=== PATIENT | female | born 1975 | race Two or more races ===

== ENCOUNTER 2016-12-13 05:59 | Day surgery (SDC) | payer BC ==
[~2016-12-13] VITALS: Ht 167.6 cm; Wt 94.3 kg
[2016-12-13] MEDS ORDERED: ASPI1TAB30 PO (06:37)
[2016-12-13] MEDS ORDERED: MORPHINE SULFATE 2 MG/ML DISP.SYRIN. IV PRN (07:00)
[2016-12-13] MEDS ORDERED: HYDROmorphone 2 MG/ML VIAL IV PRN (07:00)
[2016-12-13] MEDS ORDERED: LIDOCAINE 1% 1 ML SYRINGE. ID PRN (07:00)
[2016-12-13] MEDS ORDERED: IV RINGERS,LACTATED 1000ML 1,000 ML IV SCH (07:00)
[2016-12-13] MEDS ORDERED: FENTANYL PF 100 MCG/2 ML VIAL. IV PRN ×2 (07:00)
[2016-12-13] MEDS ORDERED: ONDANSETRON PF 4 MG/2 ML VIAL. IV PRN (07:00)
[2016-12-13] MEDS ORDERED: PROCHLORPERAZINE 10 MG/2 ML VIAL. IV PRN (07:00)
[2016-12-13 07:15] LABS: NEG OBC UR NEG; POS OBC UR POS
[2016-12-13] MEDS ORDERED: PROPOFOL 20 ML IV ONE (07:23)
[2016-12-13] MEDS ORDERED: DEXAMETHASONE SOD PHOS 20 MG/5 ML VIAL. ONE (07:23)
[2016-12-13] MEDS ORDERED: FENTANYL PF 100 MCG/2 ML VIAL. ONE (07:23)
[2016-12-13] MEDS ORDERED: LIDOCAINE 2% 100 MG/5 ML SYRINGE. ONE (07:23)
[2016-12-13] MEDS ORDERED: ONDANSETRON PF 4 MG/2 ML VIAL. ONE (07:23)
[2016-12-13] MEDS ORDERED: MIDAZOLAM HCL/PF 2 MG/2 ML VIAL. ONE (07:23)
[2016-12-13] MEDS: LIDOCAINE 1%/EPI 1:100,000 20 ML VIAL. ONE ×2 (07:27→07:53)
[2016-12-13] MEDS: FERRIC SUBSULFATE 8 ML SOL.W.APPL TP ONE ×2 (07:28→07:53)
[2016-12-13] MEDS ORDERED: GLYCOPYRROLATE 1 MG/5 ML VIAL. ONE (07:57)
--- NOTE | 2016-12-13 08:08 | PDOC ---
BRIEF OPERATIVE NOTE Pre-Op Diagnosis Cervical Dysplasia Post-Op Diagnosis SAme Procedure Performed Cervical Cone Biopsy Surgeon Dr. Dominguez Anesthesia Type: General Blood Loss 5 ml Specimens Obtained cervical cone biopsy Findings cervical dysplasia Complications none Additional Remarks Pt. ERNESTO Yeung Jr, MD Dec 13, 2016 08:08
--- NOTE | 2016-12-13 08:08 | DISCH ---
DISCHARGE INSTRUCTIONS Condition on Discharge Condition on Discharge: Stable Activity After Discharge Activity Instructions for Disc: Activity as tolerated Lifting Instructions after Dis: No heavy lifting Driving Instructions after Dis: Do not drive today Diet after Discharge Diet after Discharge: Regular Contacting the DRIrvin after DC Call your doctor for: Concerns you may have Follow-Up Follow up with: Dr. Dominguez in 1 week. ERNESTO DOMINGUEZ Jr, MD Dec 13, 2016 08:08
--- NOTE | 2016-12-13 08:24 | OP ---
DATE OF SURGERY: PREOPERATIVE DIAGNOSIS: Cervical dysplasia. POSTOPERATIVE DIAGNOSIS: Cervical dysplasia. PROCEDURE: Cervical cone biopsy. SURGEON: Ernetso Dominguez M.D. ANESTHESIA: GETA. ESTIMATED BLOOD LOSS: 5 mL. COMPLICATIONS: None. FINDINGS: Cervical dysplasia. SUMMARY: A 41-year-old 3, para 3 with moderate cervical dysplasia by colposcopic biopsy requiring cold knife cone biopsy. The patient was counseled on risks, benefits and expectations and voiced clear understanding to proceed. DESCRIPTION OF PROCEDURE: The patient was taken to surgery suite and placed in dorsal lithotomy position where she was prepped with Betadine and draped in sterile fashion. After adequate anesthesia, weighted speculum and curved Mulugeta placed vaginally, anterior lip of cervix grasped with a single tooth tenaculum. 2-0 Vicryl suture was placed at the 3 o'clock and 9 o'clock positions for stabilization of the cervix. 1% lidocaine with epinephrine was injected in a circumferential manner. Cone biopsy was performed with a 45-degree angle scapula removing the cervical tissue in a cone-shaped formation. The remaining cervical tissue was cauterized with Bovie cautery with ball tip. Monsel solution was also utilized for good hemostasis. The single tooth tenaculum and weighted speculum were removed. The patient tolerated the procedure well and was taken to recovery room in stable condition. Sponge and needle counts correct x 3. ERNESTO DOMINGUEZ MD DR: BOBBY/bob JOB#: [id number] / [id number]
[2016-12-13] MEDS ORDERED: OXYC-323 PO (08:28)
[2016-12-13 08:53] VITALS: BP 125/61
--- NOTE | 2016-12-17 16:44 | PATHOLOGY ---
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 - Endocervical, exocervical and deep margins negative for HARINDER III. - Focal low grade dysplasia present at exocervical margin. - Focal active chronic cervicitis with atypical squamous metaplasia. COMMENT: There is no evidence of invasive carcinoma. (JPM:csd; d/t: 12/17/2016) REPORT ELECTRONICALLY SIGNED BY: Robin Lopez M.D. DATE/TIME: 12/17/2016 16:43 * * * * * * * * GROSS PATHOLOGY: Received in formalin labeled "Marj Mack, cervical cone biopsy, suture 12:00," is a previously opened LEEP specimen measuring 2.7 x 2.2 x 1.5 cm in greatest dimensions. The specimen is oriented with a suture marking the 12:00 position. The 1.8 cm cervical os is surrounded by light saavedra, granular ectocervical mucosa. The endocervical margin is inked blue and the ectocervical margin is inked black. The specimen is divided into four quadrants in a clockwise fashion, sectioned, and entirely submitted as follows: A1-A2 12 to 3:00 margin A3 3 to 6:00 margin A4 6 to 9:00 margin A5-A6 9 to 12:00 margin. (CAA; 12/14/2016) INITIAL CPT CODE(S): A; 14675 Professional services performed by [facility] at [address] [address] Technical services performed by [facility] at [address] [place] [address] [address] [address]. SPECIMEN(S) RECEIVED: A.Cervical cone biopsy CLINICAL HISTORY: Moderate cervical dysplasia PATIENT: MARJ MACK /AGE: 8 1975 (Age: 41) PATIENT #: [id number] ALT CASE #: SPECIMEN COLLECTION DATE: 12/13/2016 SPECIMEN RECEIVED DATE: 12/13/2016 [facility] - [address] [place] [address] - PHONE: [phone] * * * END OF REPORT * * *
== END 2016-12-13 09:30 | disposition home or self-care (01) ==
LOC: SURG 05:59 → MERGE 09:15 → SURG 09:30
PROVIDERS: ATTEND Obstetrics & Gynecology
DX: N87.9 Dysplasia of cervix uteri, unspecified (principal); E66.9 Obesity, unspecified; Z98.51 Tubal ligation status
CPT/HCPCS: 57520; 81025; J0690; J1100; J2250; J2405; J2704; J3010; J3490; J7120

== ENCOUNTER 2016-12-22 17:24 | Emergency (ER) | payer BC ==
[~2016-12-22] VITALS: Ht 167.6 cm; Wt 94.3 kg
[~2016-12-22 17:24] MED LIST: ASPI1TAB30 PO; OXYC-323 PO
[2016-12-22 18:05] LABS: BASO % 0 % (0-3); EOS % 1 % (0-3); HEMATOCRIT 36.8 % (36.0-47.0); HEMOGLOBIN 12.6 g/dL (12.0-15.5); LYMPH # 2.6 x10^3/uL (1.0-4.8); LYMPH % 23 % (24-48); MEAN CORPUSCULAR HEMOGLOBIN 30 pg (25-35); MEAN CORPUSCULAR HGB CONC 34 g/dL (31-37); MEAN CORPUSCULAR VOLUME 89 fL (79-100); MONO % 7 % (0-9); NEUT % 69 % (31-73); PLATELET COUNT 264 x10^3/uL (140-400); RED BLOOD COUNT 4.15 x10^6/uL (3.50-5.40); RED CELL DISTRIBUTION WIDTH 14.2 % (11.5-14.5); WHITE BLOOD COUNT 11.4 x10^3/uL (4.0-11.0)
--- NOTE | 2016-12-22 18:11 | ED.ADGEN ---
Past Medical History Past Medical History: Migraines Past Surgical History: Other Additional Past Surgical Histo: VAGINAL SURG R/T CANCER CELLS Alcohol Use: None Drug Use: None Adult General Chief Complaint Chief Complaint: VAGINAL PROBLEM HPI HPI Patient is a 41 year old female status post colposcopy with biopsy [address] Dominguez presents with vaginal bleeding with passage of large dark clots starting 2 hours ago while at work. Patient scheduled states she has had light vaginal bleeding past 2 days consistent with menstrual period. Patient's last menstrual period was one month ago. Denies history of menorrhagia or dysfunctional uterine bleeding. Patient said previous hysterectomy. Denies dizziness lightheadedness, chest pain shortness of breath. No other acute symptoms or complaints. Review of Systems Review of Systems Review symptoms as per history of present illness. All other review symptoms are negative. Allergies Allergies Allergies Coded Allergies Type Severity Reaction Last Updated Verified No Known Drug Allergies 12/13/16 No Physical Exam Physical Exam Constitutional: Well developed, well nourished, no acute distress, non-toxic appearance. Abdomen: Bowel sounds normal, soft, no tenderness, no masses, no pulsatile masses. Skin: Warm, dry, no erythema, no rash. : External genitalia, normal, dark red blood and clots in vaginal vault, dark red blood through os with fresh blood on biopsy site. Extremities: No tenderness. Neurologic: Alert and oriented X 3, normal motor function, normal sensory function, no focal deficits noted. Psychologic: Affect normal, judgement normal, mood normal. Current Patient Data Vital Signs Vital Signs Date Time Temp Pulse Resp B/P (MAP) Pulse Ox O2 Delivery O2 Flow Rate FiO2 12/22/16 17:33 98.3 97 18 141/65 (90) 99 Room Air 98.3 EKG EKG [] Radiology/Procedures Radiology/Procedures [] Impressions: Vaginal bleeding the setting of colpsscopy. Bleeding cleared with removal of clots with minimal flow. Course & Med Decision Making Course & Med Decision Making Pertinent Labs and Imaging studies reviewed. (See chart for details) [ Will check CBC, provide work note with close follow-up with AIRPORT MANAGER. Return precautions reviewed.] Dragon Disclaimer Dragon Disclaimer This electronic medical record was generated, in whole or in part, using a voice recognition dictation system. AMBER LACEY DO December 22, 2016 18:11
[2016-12-22 18:27] VITALS: BP 115/56
== END 2016-12-22 18:26 | disposition home or self-care (01) ==
LOC: ER 17:24
DX: N93.8 Other specified abnormal uterine and vaginal bleeding (principal); G43.909 Migraine, unspecified, not intractable, without status migrainosus
CPT/HCPCS: 36415; 85027; 99283

== ENCOUNTER → 2017-06-20 | Outpatient (CLI) | payer BC ==
[~2017-06-20] MED LIST changes: -ASPI1TAB30 PO; +ASPI1TAB31 PO; +DOCU-109 PO; +IBUP-1060 PO
[2017-06-20 15:29] LABS: BASO % 0 % (0-3); EOS % 2 % (0-3); HEMATOCRIT 39.6 % (36.0-47.0); HEMOGLOBIN 13.4 g/dL (12.0-15.5); LYMPH # 2.6 x10^3/uL (1.0-4.8); LYMPH % 32 % (24-48); MEAN CORPUSCULAR HEMOGLOBIN 30 pg (25-35); MEAN CORPUSCULAR HGB CONC 34 g/dL (31-37); MEAN CORPUSCULAR VOLUME 89 fL (79-100); MONO % 8 % (0-9); NEUT % 58 % (31-73); PLATELET COUNT 278 x10^3/uL (140-400); RED BLOOD COUNT 4.47 x10^6/uL (3.50-5.40); RED CELL DISTRIBUTION WIDTH 14.2 % (11.5-14.5); WHITE BLOOD COUNT 7.9 x10^3/uL (4.0-11.0)
== END | disposition home or self-care (01) ==
LOC: SURGPAT 14:22
PROVIDERS: ATTEND Obstetrics & Gynecology
DX: Z01.818 Encounter for other preprocedural examination (principal); Z90.722 Acquired absence of ovaries, bilateral
CPT/HCPCS: 36415; 85025

== ENCOUNTER 2017-06-27 09:57 | Observation (INO) | payer BC ==
[~2017-06-27] VITALS: Ht 167.6 cm; Wt 96.2 kg
[2017-06-27] VITALS (8 sets, daily range): BP systolic 106–114; BP diastolic 62–74
[~2017-06-27 09:57] MED LIST changes: -DOCU-109 PO; +HYDROmorphone 2 MG/ML VIAL IV PRN; -IBUP-1060 PO; +IV RINGERS,LACTATED 1000ML 1,000 ML IV SCH; +LIDOCAINE 1% PF 2 ML VIAL. ID PRN; +ONDANSETRON PF 4 MG/2 ML VIAL. IV PRN; +PROCHLORPERAZINE 10 MG/2 ML VIAL. IV PRN; +fentaNYL PF VIAL 100 MCG/2 ML VIAL IV PRN
[2017-06-27 10:37] LABS: NEG OBC UR NEG; POS OBC UR POS
[2017-06-27] MEDS ORDERED: MIDAZOLAM HCL/PF 2 MG/2 ML VIAL. ONE (10:45)
[2017-06-27] MEDS ORDERED: fentaNYL PF VIAL 100 MCG/2 ML VIAL ONE (10:45)
[2017-06-27] MEDS ORDERED: DEXAMETHASONE SOD PHOS 20 MG/5 ML VIAL. ONE (10:45)
[2017-06-27] MEDS ORDERED: PROPOFOL 20 ML IV ONE (10:45)
[2017-06-27] MEDS ORDERED: ONDANSETRON PF 4 MG/2 ML VIAL. ONE (10:45)
[2017-06-27] MEDS ORDERED: LIDOCAINE 2% PF Vial for OR 5 ML VIAL. ONE (10:45)
[2017-06-27] MEDS ORDERED: ROCURONIUM 50 MG/5 ML VIAL. ONE (10:46)
[2017-06-27] MEDS ORDERED: ESTROGENS, CONJ VAGINAL CREAM 30GM TUBE. ONE (10:50)
[2017-06-27] MEDS ORDERED: LIDOCAINE 1%/EPI 1:100,000 20 ML VIAL. ONE (10:50)
[2017-06-27] MEDS ORDERED: GLYCOPYRROLATE 1 MG/5 ML VIAL. ONE (11:34)
[2017-06-27] MEDS ORDERED: NEOSTIGMINE 10 MG/10 ML VIAL. ONE (11:34)
[2017-06-27] MEDS ORDERED: KETOROLAC 30 MG/ML INJ FOR OR. INJ ONE (11:34)
[2017-06-27] MEDS ORDERED: PHENYLEPHRINE in 0.9% NACL PF 1 MG/10 ML DISP.SYRIN. IV ONE (11:36)
[2017-06-27] MEDS ORDERED: SEVOFLURANE 61 TO 120 MINUTES. IH ONE (11:36)
--- NOTE | 2017-06-27 12:19 | PDOC ---
BRIEF OPERATIVE NOTE Date: Jun 27, 2017 Pre-Op Diagnosis 1. Cervical Dysplasia 2. Fm H/o Breast Cancer Post-Op Diagnosis SAme Procedure Performed TVH & BSO Surgeon Dr. Dominguez Anesthesia Type: General Blood Loss 200 ml Specimens Obtained uterus, cervix, ame. fallopian tubes and ovaries Findings enlarged uterus, nml fallopian tubes and ovaries ame. Complications none Operative Note see dictation ERNESTO DOMINGUEZ Jr, MD Jun 27, 2017 12:19
[2017-06-27] MEDS ORDERED: DEXTROSE 50% 25 GM / 50ML DISP.SYRIN. IV PRN (12:30)
[2017-06-27] MEDS ORDERED: ONDANSETRON PF 4 MG/2 ML VIAL. IV PRN (12:30)
[2017-06-27] MEDS ORDERED: PROCHLORPERAZINE 10 MG/2 ML VIAL. IV PRN (12:30)
[2017-06-27] MEDS ORDERED: ZOLPIDEM 5 MG TABLET. PO PRN (12:30)
[2017-06-27] MEDS ORDERED: 0.9 % SODIUM CHLORIDE 10 ML DISP.SYRIN. IV PRN (12:30)
[2017-06-27] MEDS ORDERED: diphenhydrAMINE HCL 25 MG CAPSULE PO PRN (12:30)
[2017-06-27] MEDS ORDERED: SIMETHICONE 80 MG TAB.CHEW PO PRN (12:30)
[2017-06-27] MEDS ORDERED: KETOROLAC 30 MG/ML INJ. IV PRN (12:30)
[2017-06-27] MEDS ORDERED: CALCIUM CARBONATE 500 MG TAB.CHEW PO PRN (12:30)
[2017-06-27] MEDS: fentaNYL PF VIAL 100 MCG/2 ML VIAL IV PRN ×4 (12:37→13:25)
[2017-06-27] MEDS: MORPHINE SULFATE 2 MG/ML DISP.SYRIN. IV PRN ×2 (13:06→13:21)
--- NOTE | 2017-06-27 13:47 | OP ---
DATE OF SURGERY: PREOPERATIVE DIAGNOSES: 1. Cervical dysplasia. 2. Family history of breast cancer. POSTOPERATIVE DIAGNOSES: 1. Cervical dysplasia. 2. Family history of breast cancer. PROCEDURE: TVH BSO. SURGEON: Ernesto Dominguez MD ANESTHESIA: GETA. ESTIMATED BLOOD LOSS: ____ mL. COMPLICATIONS: None. FINDINGS: Enlarged uterus, normal fallopian tubes and ovaries bilaterally. SUMMARY: A 42-year-old female with family history of breast cancer as well as recurrent, [id number] cervical dysplasia, requiring hysterectomy. The patient was counseled on the risks, benefits and expectations of TVH BSO and voiced a clear understanding to proceed. DESCRIPTION OF PROCEDURE: The patient was taken to the Surgery Suite and placed in dorsal lithotomy position. She was prepped with ChloraPrep and draped in a sterile fashion. After adequate anesthesia, weighted speculum and curved Mulugeta placed vaginally. The anterior and posterior lips of the cervix were grasped with Jean-Pierre clamps. 1% lidocaine with epinephrine was injected circumferentially in the cervix. Bovie cautery was then utilized to circumscribe the cervix. The vaginal mucosa was dissected away from the lower uterine segment using a moist Ray-Nova. The parametrial tissue was clamped bilaterally with curved Johann clamps, cut and suture ligated with 2-0 Vicryl suture. Posterior cul-de-sac was then entered sharply with curved Matt scissors. The long weighted speculum was then placed. Uterosacral ligaments and cardinal ligaments were clamped bilaterally, cut and suture ligated with 2-0 Vicryl suture. The anterior cul-de-sac was entered sharply with Metzenbaum scissors. The uterosacral ligaments were clamped bilaterally, cut and suture ligated with 2-0 Vicryl sutures. The uterus was then retroverted and a quadrant method was utilized to help remove the fundal portion of the uterus. The remainder portion of the uterus was then removed. The right fallopian tube and ovary was identified and grasped with Babcocks. The right infundibulopelvic ligament was isolated and clamped with curved Johann clamps, cut and suture ligated. Same process took place with the left adnexa. A modified Bravo's culdoplasty was performed incorporating the uterosacral ligaments bilaterally. The remainder of the vaginal cuff was reapproximated using 2-0 Vicryl suture in a doohvt-uk-myntk manner. Moist vaginal packing was placed. The patient tolerated the procedure well and was taken to Recovery Room in stable condition. Sponge and needle counts correct x 3. ERNESTO DOMINGUEZ MD DR: BOBBY/bob JOB#: [id number] / [id number]
[2017-06-27] MEDS: diphenhydrAMINE 50 MG/ML VIAL IV PRN ×2 (14:25→20:45)
[2017-06-27] MEDS: GABAPENTIN 300 MG CAPSULE. PO SCH (16:46)
[2017-06-27] MEDS: oxyCODONE/APAP 5/325 1 TAB TABLET PO PRN ×2 (16:46→22:00)
[2017-06-28] MEDS: oxyCODONE/APAP 5/325 1 TAB TABLET PO PRN ×2 (02:14→07:04)
[2017-06-28 02:30] VITALS: BP 104/61
[2017-06-28 05:42] LABS: BASO % 0 % (0-3); EOS % 0 % (0-3); HEMATOCRIT 33.9 % (36.0-47.0); HEMOGLOBIN 11.7 g/dL (12.0-15.5); LYMPH # 1.3 x10^3/uL (1.0-4.8); LYMPH % 7 % (24-48); MEAN CORPUSCULAR HEMOGLOBIN 31 pg (25-35); MEAN CORPUSCULAR HGB CONC 35 g/dL (31-37); MEAN CORPUSCULAR VOLUME 89 fL (79-100); MONO % 4 % (0-9); NEUT % 89 % (31-73); PLATELET COUNT 253 x10^3/uL (140-400); RED BLOOD COUNT 3.82 x10^6/uL (3.50-5.40); RED CELL DISTRIBUTION WIDTH 14.2 % (11.5-14.5); WHITE BLOOD COUNT 20.9 x10^3/uL (4.0-11.0)
[2017-06-28 05:59] VITALS: BP 110/68
[2017-06-28] MEDS: GABAPENTIN 300 MG CAPSULE. PO SCH (07:03)
--- NOTE | 2017-06-28 08:52 | PDOC ---
SURGICAL PROGRESS NOTE Subjective Pt. feeling well. Pain controlled. Tolerating regular diet, ambulating and voiding. Vital Signs Vital Signs Date Time Temp Pulse Resp B/P (MAP) Pulse Ox O2 Delivery O2 Flow Rate FiO2 06/28/17 07:04 Room Air 06/28/17 05:59 98.3 76 14 110/68 (82) 98 98.3 06/27/17 16:46 2.0 PATIENT HAS A VELAZQUEZ: No General: Alert, Oriented X3, Cooperative HEENT: Atraumatic Lungs: Clear to auscultation Heart: Regular rate Abdomen: Normal bowel sounds, Soft, No tenderness Extremities: No edema Psych/Mental Status: Mental status NL Labs Laboratory Tests Test 06/27/17 10:00 06/28/17 05:15 Urine Test Negative (NEG) White Blood Count 20.9 x10^3/uL (4.0-11.0) Red Blood Count 3.82 x10^6/uL (3.50-5.40) Hemoglobin 11.7 g/dL (12.0-15.5) Hematocrit 33.9 % (36.0-47.0) Mean Corpuscular Volume 89 fL (79-100) Mean Corpuscular Hemoglobin 31 pg (25-35) Mean Corpuscular Hemoglobin Concent 35 g/dL (31-37) Red Cell Distribution Width 14.2 % (11.5-14.5) Platelet Count 253 x10^3/uL (140-400) Neutrophils (%) (Auto) 89 % (31-73) Lymphocytes (%) (Auto) 7 % (24-48) Monocytes (%) (Auto) 4 % (0-9) Eosinophils (%) (Auto) 0 % (0-3) Basophils (%) (Auto) 0 % (0-3) Neutrophils # (Auto) 18.6 x10^3uL (1.8-7.7) Lymphocytes # (Auto) 1.3 x10^3/uL (1.0-4.8) Monocytes # (Auto) 0.9 x10^3/uL (0.0-1.1) Eosinophils # (Auto) 0.0 x10^3/uL (0.0-0.7) Basophils # (Auto) 0.0 x10^3/uL (0.0-0.2) Laboratory Tests Test 06/27/17 10:00 06/28/17 05:15 Urine Test Negative (NEG) White Blood Count 20.9 x10^3/uL (4.0-11.0) Red Blood Count 3.82 x10^6/uL (3.50-5.40) Hemoglobin 11.7 g/dL (12.0-15.5) Hematocrit 33.9 % (36.0-47.0) Mean Corpuscular Volume 89 fL (79-100) Mean Corpuscular Hemoglobin 31 pg (25-35) Mean Corpuscular Hemoglobin Concent 35 g/dL (31-37) Red Cell Distribution Width 14.2 % (11.5-14.5) Platelet Count 253 x10^3/uL (140-400) Neutrophils (%) (Auto) 89 % (31-73) Lymphocytes (%) (Auto) 7 % (24-48) Monocytes (%) (Auto) 4 % (0-9) Eosinophils (%) (Auto) 0 % (0-3) Basophils (%) (Auto) 0 % (0-3) Neutrophils # (Auto) 18.6 x10^3uL (1.8-7.7) Lymphocytes # (Auto) 1.3 x10^3/uL (1.0-4.8) Monocytes # (Auto) 0.9 x10^3/uL (0.0-1.1) Eosinophils # (Auto) 0.0 x10^3/uL (0.0-0.7) Basophils # (Auto) 0.0 x10^3/uL (0.0-0.2) Assessment/Plan A: POD#1 s/p TVH & BSO P: D/c home. Problems: ERNESTO CUEVAS Jr, MD Jun 28, 2017 08:52
--- NOTE | 2017-06-28 08:53 | DISCH ---
DISCHARGE INSTRUCTIONS Condition on Discharge Condition on Discharge: Stable Activity After Discharge Activity Instructions for Disc: Activity as tolerated Lifting Instructions after Dis: No heavy lifting Driving Instructions after Dis: Do not drive today Diet after Discharge Diet after Discharge: Regular Contacting the DRIrvin after DC Call your doctor for: Concerns you may have Follow-Up Follow up with: Dr. Dominguez in 2 weeks. ERNESTO DOMINGUEZ Jr, MD Jun 28, 2017 08:53
[2017-06-28] MEDS ORDERED: OXYC-323 PO (08:54)
[2017-06-28] MEDS ORDERED: IBUP-1060 PO (08:54)
[2017-06-28] MEDS ORDERED: DOCU-109 PO (08:54)
[2017-06-28 11:52] VITALS: BP 110/53
[2017-06-28 12:21] LABS: PLT ESTIMATE ADEQUATE (ADEQUATE); TOXIC GRANULATION SLIGHT
--- NOTE | 2017-07-02 15:17 | PATHOLOGY ---
PATHOLOGY REPORT * * * * * * * * FINAL DIAGNOSIS: Segments of uterine corpus with attached cervix and detached bilateral fallopian tubes and ovaries, total vaginal hysterectomy with bilateral salpingo-oophorectomy: - Mild dysplasia (HARINDER I) of cervix, focal. See comment. - Exocervical margin negative for dysplasia. - Previous biopsy site changes of uterine cervix showing fibrosis,hemosiderin laden macrophages, and focal foreign body giant cell reaction. - Chronic cervicitis with focal squamous metaplasia. - Endometriosis of cervix, focal. - Nabothian cysts, cervix. - Secretory endometrium. - Adenomyosis, uterine corpus, subbasal, focal. - Bilateral fallopian tubes showing no significant pathologic abnormalities. - Cystic follicles and hemorrhagic corpus luteal cyst of ovaries. COMMENT: The entire uterine cervix is submitted for histologic evaluation. There is a focal area consistent with mild dysplasia (HARINDER I). There is no residual severe dysplasia/carcinoma in situ (HARINDER III). The case is also examined by Dr. Jessee Child, who has a speciality interest in [employer] pathology. She concurs with the diagnoses. (JPM:; 07/02/2017) REPORT ELECTRONICALLY SIGNED BY: Robin Lopez M.D. DATE/TIME: 07/02/2017 15:16 * * * * * * * * GROSS PATHOLOGY: The specimen is received in formalin labeled "Jose Mack, uterus, cervix, bilateral fallopian tubes, bilateral ovaries". Received is a 119 g uterus (received in multiple pieces) measuring 9.5 x 7.6 x 5.9 cm in aggregate dimensions with attached cervix and detached adnexa, weighing 9 and 14 g. The uterine serosa is light saavedra and smooth to slightly disrupted in appearance. The 0.5 cm cervical os is surrounded by pale saavedra, smooth to slightly wrinkled ectocervical mucosa. The attached cervix is oriented using the peritoneal reflection and the entire paracervical margin is inked black. The fundal aspect of the specimen cannot be oriented. The lower uterine segment is opened laterally to reveal a pale saavedra endocervical canal measuring 3.6 cm in length. The endometrial cavity is triangular measuring 3.6 cm in length by 2.1 cm in width. The endometrium is pink-saavedra, glistening in appearance and measures 0.1 cm in thickness. Serial sectioning reveals a saavedra-pink, trabeculated myometrium measuring up to 3.1 cm in thickness with no grossly distinct nodules or lesions. The 9 g adnexa consists of a fimbriated fallopian tube measuring 3.2 cm in length by up to 0.5 cm in diameter attached to a 3.1 x 2.5 x 1.7 cm ovary. Sectioning through the fallopian tube reveals a patent lumen and the fallopian tube appears grossly unremarkable. Sectioning through the ovary reveals multiple cystic structures ranging in size from 0.3 to 0.6 cm filled with clear fluid. The remainder the ovary displays pale saavedra, normal ovarian stroma. The 14 adnexa consists of a non-fimbriated fallopian tube measuring 2.2 cm in length by up to 0.5 cm in diameter attached to a 3.1 x 3.0 x 2.2 cm ovary. Sectioning through the fallopian tube reveals a pinpoint lumen and the fallopian tube has a metallic ligation clamp present. Sectioning through the ovary reveals multiple cystic structures ranging in size from 0.2 to 0.5 cm filled with clear fluid. The remaining cut surfaces display pale saavedra, normal ovarian stroma. The entire cervix and additional sales representative facility services sections are submitted as follows: A1-A4 12 to 3:00 cervix A5-A7 3 to 6:00 cervix A8-A11 6 to 9:00 cervix A12-A15 9 to 12:00 cervix A16 endomyometrium A17 opposite endomyometrium A18-A19 sales representative facility services sections of 9 g adnexa A20-A21 sales representative facility services sections of 14 g adnexa. (CAA; 06/28/2017) INITIAL CPT CODE(S): A; 39595 Professional services performed by [facility] at [address] [address] Technical services performed by [facility] at [address] [place] [address], [address], [place] [address]. SPECIMEN(S) RECEIVED: A.Uterus, cervix, bilateral fallopian tubes, bilateral ovaries CLINICAL HISTORY: Moderate cervical dysplasia, family history of breast cancer PATIENT: JOSE MACK /AGE: 8 1975 (Age: 42) PATIENT #: [id number] ALT CASE #: SPECIMEN COLLECTION DATE: 06/27/2017 SPECIMEN RECEIVED DATE: 06/27/2017 [facility] - [address] [place] [id number] - PHONE: [phone] * * * END OF REPORT * * *
== END 2017-06-28 12:58 | disposition home or self-care (01) ==
LOC: SURG 09:57 → 3 NORTH 13:41
PROVIDERS: ADMIT Obstetrics & Gynecology; ATTEND Obstetrics & Gynecology
DX: N87.9 Dysplasia of cervix uteri, unspecified (principal); Z80.3 Family history of malignant neoplasm of breast; Z85.3 Personal history of malignant neoplasm of breast
CPT/HCPCS: 36415; 58262; 81025; 85007; 85025; 86850; 86900; 86901; 96374; 96375; 96376; G0378; G0379; J0690; J1100; J1170; J1200; J1885; J2250; J2270; J2370; J2405; J2704; J2710; J3010; J3490; J7120; 88309; J0780; J2001

== ENCOUNTER 2017-07-08 11:05 | Observation (INO) | payer BC ==
[~2017-07-08] VITALS: Ht 172.7 cm; Wt 94.1 kg
[~2017-07-08 11:05] MED LIST changes: +DOCU-109 PO; -HYDROmorphone 2 MG/ML VIAL IV PRN; +IBUP-1060 PO; -IV RINGERS,LACTATED 1000ML 1,000 ML IV SCH; -LIDOCAINE 1% PF 2 ML VIAL. ID PRN; -ONDANSETRON PF 4 MG/2 ML VIAL. IV PRN; -PROCHLORPERAZINE 10 MG/2 ML VIAL. IV PRN; -fentaNYL PF VIAL 100 MCG/2 ML VIAL IV PRN
[2017-07-08 11:57] LABS: BASO % 0 % (0-3); EOS % 1 % (0-3); HEMATOCRIT 32.3 % (36.0-47.0); HEMOGLOBIN 11.3 g/dL (12.0-15.5); LYMPH # 3.5 x10^3/uL (1.0-4.8); LYMPH % 37 % (24-48); MEAN CORPUSCULAR HEMOGLOBIN 31 pg (25-35); MEAN CORPUSCULAR HGB CONC 35 g/dL (31-37); MEAN CORPUSCULAR VOLUME 89 fL (79-100); MONO % 6 % (0-9); NEUT % 56 % (31-73); PLATELET COUNT 322 x10^3/uL (140-400); RED BLOOD COUNT 3.62 x10^6/uL (3.50-5.40); RED CELL DISTRIBUTION WIDTH 14.1 % (11.5-14.5); WHITE BLOOD COUNT 9.6 x10^3/uL (4.0-11.0)
[2017-07-08 12:06] LABS: CREATININE 1.1 mg/dL (0.6-1.0); GFR 54.2; POTASSIUM 3.7 mmol/L (3.5-5.1)
--- NOTE | 2017-07-08 12:11 | RAD ---
Indication: Shortness of air. Time of exam 12 00 hours FINDINGS: The heart size is normal. The lungs are clear. No pleural effusion or pneumothorax is identified. The pulmonary vascularity is normal. IMPRESSION: No acute abnormality detected.
[2017-07-08 12:12] LABS: ALBUMIN/GLOBULIN RATIO 0.8 (1.0-1.7); TOTAL BILIRUBIN 0.3 mg/dL (0.2-1.0); TOTAL PROTEIN 6.6 g/dL (6.4-8.2)
[2017-07-08] MEDS ORDERED: IV NORMAL SALINE 1000ML BAG 1,000 ML IV ONE ×2 (12:15→14:15)
--- NOTE | 2017-07-08 12:33 | PHYS DOC ---
Past Medical History Past Medical History: No Pertinent History, Migraines Past Surgical History: Hysterectomy, Other Additional Past Surgical Histo: VAGINAL SURG R/T CANCER CELLS Alcohol Use: None Drug Use: None Adult General Chief Complaint Chief Complaint: SYNCOPE HPI HPI Patient is a 42 year old female who presents with 3 episodes of syncope, lower abdominal pain, weakness. Patient symptoms developed today, 11 days ago she had a complete hysterectomy transvaginally. She been feeling okay with some minor pain in her abdomen which increased today. She states it feels very full. She had 2 syncopal episodes when she got up to try to go to the bathroom. She had sudden urgency of urination as well as defecation. She denies any fevers, no nausea or vomiting. She is also experiencing shortness of breath and chest pain on the right side of her chest, worse with deep inspiration, sharp in nature. This also started today. Denies any history of blood clots in her legs or lungs. Surgeon was Dr. Dominguez, no other primary care physician. She denies any known cardiac history. She was brought in by EMS, reportedly her blood pressure was initially in the 70s, improved by the time she arrived to our ER. Review of Systems Review of Systems Constitutional: Denies fever or chills [] Eyes: Denies change in visual acuity, redness, or eye pain [] HENT: Denies nasal congestion or sore throat [] Respiratory: Denies cough or shortness of breath [] Cardiovascular: No additional information not addressed in HPI [] GI: Per history of present illness : Her history of present illness Musculoskeletal: Denies back pain or joint pain [] Integument: Denies rash or skin lesions [] Neurologic: Denies headache, focal weakness or sensory changes [] Current Medications Current Medications Current Medications Medications (Trade) Dose Ordered Sig/Fausto Start Time Stop Time Status Last Admin Dose Admin Ceftriaxone Sodium 50 ml @ 100 mls/hr 1X ONCE 07/08/17 13:15 07/08/17 13:44 DC 07/08/17 13:42 100 MLS/HR Info (Do NOT chart on this entry -- for MONITORING) 1 each PRN DAILY PRN 07/08/17 12:45 07/10/17 12:44 Iohexol (Omnipaque 300 Mg/ml) 75 ml 1X ONCE 07/08/17 12:45 07/08/17 12:46 DC 07/08/17 13:15 60 ML Sodium Chloride 1,000 ml @ 1,000 mls/hr 1X ONCE 07/08/17 12:15 07/08/17 13:14 DC 07/08/17 12:18 1,000 MLS/HR Allergies Allergies Allergies Coded Allergies Type Severity Reaction Last Updated Verified No Known Drug Allergies 06/27/17 No Physical Exam Physical Exam Constitutional: Well developed, well nourished HENT: Normocephalic, atraumatic, bilateral external ears normal, oropharynx moist Eyes: PERRLA, EOMI, conjunctiva normal, no discharge. Neck: Normal range of motion, supple, no stridor. Cardiovascular:Heart rate regular with regular rhythm Lungs & Thorax: Bilateral breath sounds clear to auscultation, no wheeze, crackles or rhonchi appreciated Abdomen: Soft, nondistended, diffusely tender in the lower abdomen without guarding or peritoneal signs Skin: Warm, dry Back: No tenderness Extremities: No tenderness, no cyanosis, no edema. Unable to palpate DP pulses , able to palpate right femoral, unable to palpate left femoral, Dopplers performed Neurologic: Alert and oriented X 3, normal motor function, normal sensory function, no focal deficits noted. [] Current Patient Data Vital Signs Vital Signs Date Time Temp Pulse Resp B/P (MAP) Pulse Ox O2 Delivery O2 Flow Rate FiO2 07/08/17 13:38 72 20 120/55 (76) 100 Room Air 07/08/17 13:08 2.0 07/08/17 11:05 97.9 97.9 Lab Values Laboratory Tests Test 07/08/17 11:11 07/08/17 12:40 White Blood Count 9.6 x10^3/uL (4.0-11.0) Red Blood Count 3.62 x10^6/uL (3.50-5.40) Hemoglobin 11.3 g/dL (12.0-15.5) L Hematocrit 32.3 % (36.0-47.0) L Mean Corpuscular Volume 89 fL (79-100) Mean Corpuscular Hemoglobin 31 pg (25-35) Mean Corpuscular Hemoglobin Concent 35 g/dL (31-37) Red Cell Distribution Width 14.1 % (11.5-14.5) Platelet Count 322 x10^3/uL (140-400) Neutrophils (%) (Auto) 56 % (31-73) Lymphocytes (%) (Auto) 37 % (24-48) Monocytes (%) (Auto) 6 % (0-9) Eosinophils (%) (Auto) 1 % (0-3) Basophils (%) (Auto) 0 % (0-3) Neutrophils # (Auto) 5.3 x10^3uL (1.8-7.7) Lymphocytes # (Auto) 3.5 x10^3/uL (1.0-4.8) Monocytes # (Auto) 0.6 x10^3/uL (0.0-1.1) Eosinophils # (Auto) 0.1 x10^3/uL (0.0-0.7) Basophils # (Auto) 0.0 x10^3/uL (0.0-0.2) D-Dimer (Lashanda) 0.94 ug/mlFEU (0.00-0.50) H Sodium Level 139 mmol/L (136-145) Potassium Level 3.7 mmol/L (3.5-5.1) Chloride Level 105 mmol/L (98-107) Carbon Dioxide Level 20 mmol/L (21-32) L Anion Gap 14 (6-14) Blood Urea Nitrogen 12 mg/dL (7-20) Creatinine 1.1 mg/dL (0.6-1.0) H Estimated GFR (Cockcroft-Gault) 54.2 BUN/Creatinine Ratio 11 (6-20) Glucose Level 186 mg/dL (70-99) H Calcium Level 9.0 mg/dL (8.5-10.1) Total Bilirubin 0.3 mg/dL (0.2-1.0) Aspartate Amino Transferase (AST) 15 U/L (15-37) Alanine Aminotransferase (ALT) 22 U/L (14-59) Alkaline Phosphatase 81 U/L (46-116) Troponin I Quantitative < 0.017 ng/mL (0.000-0.055) Total Protein 6.6 g/dL (6.4-8.2) Albumin 3.0 g/dL (3.4-5.0) L Albumin/Globulin Ratio 0.8 (1.0-1.7) L Urine Color Yellow Urine Clarity Cloudy Urine pH 6.5 Urine Specific [place] 1.025 Urine Protein 100 mg/dL (NEG-TRACE) Urine Glucose (UA) 100 mg/dL (NEG) Urine Ketones (Stick) Trace mg/dL (NEG) Urine Blood Small (NEG) Urine Nitrite Negative (NEG) Urine Bilirubin Negative (NEG) Urine Urobilinogen Dipstick 0.2 mg/dL (0.2 mg/dL) Urine Leukocyte Esterase Small (NEG) Urine RBC 6-10 /HPF (0-2) Urine WBC 20-40 /HPF (0-4) Urine Squamous Epithelial Cells Many /LPF Urine Bacteria Moderate /HPF (0-FEW) Urine Mucus Marked /LPF Laboratory Tests 07/08/17 11:11 Laboratory Tests 07/08/17 11:11 EKG EKG 88 bpm, sinus, normal axis, QTC of 480, no ST elevation or depression, nonischemic T waves, interpreted by me Senior Publications Specialist shows 74 bpm, sinus, no arrhythmia appreciated interpreted by me [] Continuous pulse ox shows 100% on room air with good waveform, interpreted by me Radiology/Procedures Radiology/Procedures CT abd/pelvis: Impression: Status post hysterectomy. There is a moderate amount of high density free fluid noted in the pelvis suggestive of hemoperitoneum. Lower density free fluid in the upper abdomen is also noted. No well-formed fluid collection or abscess is identified. There is no bowel obstruction or free air. CTA chest: Impression: Suboptimal exam, described above. No gross abnormality is detected. Bilateral arterial doppler: Impression: No evidence of high-grade stenosis or occlusion. Course & Med Decision Making Course & Med Decision Making Pertinent Labs and Imaging studies reviewed. (See chart for details) Was given 1 L of IV fluids, lab work, urinalysis ordered. Patient is at risk for PE, Main lower abdominal pain, on palpable pulses. A CT angiography of the chest, abdomen and pelvis ordered with runoffs. Patient declined pain medication at this time. CTA study nondiagnostic, CT abd without acute findings, no arterial clots on dopplers of legs. Pt had an episode where she became diaphoretic and appeared to be less responsive, she had diffuse rigidity of her extremities but not pulsating and remained conscious, no seizure-like activity, no loss of urine, no postictal period. Blood pressure had dropped and it was shortly after pt received medication of morphine. Pt likely had syncope 2/2 to hypotension, cause of hypotension not clear. Spoke with Dr. Dominguez who accepted pt for admission. Initially planned to place pt on L&D floor, but due to pt's changing blood pressure intermittently, pt moved to PCU. Jomar Disclaimer Jomar Disclaimer This electronic medical record was generated, in whole or in part, using a voice recognition dictation system. Departure Departure Impression: Primary Impression: Syncope Additional Impression: UTI (urinary tract infection) Disposition: ADMITTED INPATIENT Admitting Physician: Other Condition: GUARDED Referrals: NO PCP (PCP) Scripts Sulfamethoxazole/Trimethoprim (BACTRIM DS TABLET) 1 Each Tablet 1 TAB PO BID, #6 TAB 0 Refills Prov: ERNESTO DOMINGUEZ Jr, MD 07/09/17 Problem Qualifiers JABARI BLANCO MD Jul 08, 2017 12:33
[2017-07-08] MEDS ORDERED: CONTRAST GIVEN MC PRN (12:45)
[2017-07-08] MEDS ORDERED: IOHEXOL 300 MG/ML 100ML VIAL. IV ONE (12:45)
--- NOTE | 2017-07-08 12:45 | EKG ---
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
[2017-07-08 12:47] LABS: BILIRUBIN,URINE NEGATIVE (NEG); GLUCOSE,URINE 100 mg/dL (NEG); NITRITE,URINE NEGATIVE (NEG); PH,URINE 6.5; PROTEIN,URINE 100 mg/dL (NEG-TRACE); UROBILINOGEN,URINE 0.2 mg/dL (0.2 mg/dL)
[2017-07-08 12:53] LABS: SQUAMOUS EPITHELIAL CELL,UR MANY /LPF
[2017-07-08 12:54] LABS: BACTERIA,URINE MODERATE /HPF (0-FEW); WBC,URINE 20-40 /HPF (0-4)
--- NOTE | 2017-07-08 13:47 | RAD ---
Indication: Postop recent hysterectomy with right-sided chest pain and abdominal pain. Axial imaging through the chest was performed after the administration of intravenous contrast and utilizing the CT angiography protocol. Multiplanar, 3-D and MIP reformations were also performed. The study is significantly compromised. There is very poor opacification of the pulmonary arterial system. There is suboptimal opacification of the thoracic aorta as well. No aortic dissection or aneurysm is seen. Evaluation for pulmonary emboli cannot be performed on this exam. No pericardial or pleural fluid is detected. No axillary, hilar or mediastinal lymphadenopathy is detected. No pulmonary infiltrates, nodules or masses are seen. Impression: Suboptimal exam, described above. No gross abnormality is detected. PQRS Compliance Statement: One or more of the following individualized dose reduction techniques were utilized for this examination: 1. Automated exposure control 2. Adjustment of the mA and/or kV according to patient size 3. Use of iterative reconstruction technique
--- NOTE | 2017-07-08 13:51 | RAD ---
Indication: Status post hysterectomy on 06/27/2017. The patient complains of abdominal pain and right-sided chest pain. Axial imaging through the abdomen and pelvis was performed after the administration of intravenous contrast. No prior studies are available for comparison. The liver and gallbladder are unremarkable. The pancreas and spleen are unremarkable. No adrenal mass is identified. The kidneys are unremarkable. There is some perihepatic and perisplenic free fluid. Small amount of fluid in the gutters is also seen. In the pelvis there appears to be some higher density free fluid, perhaps a hemoperitoneum. No acute arterial extravasation is seen. The bladder is decompressed. Uterus appears surgically absent. There is no free air. No bowel obstruction is identified. The aorta is nonaneurysmal. No well-formed fluid collection or abscess is seen at this time. Impression: Status post hysterectomy. There is a moderate amount of high density free fluid noted in the pelvis suggestive of hemoperitoneum. Lower density free fluid in the upper abdomen is also noted. No well-formed fluid collection or abscess is identified. There is no bowel obstruction or free air.
[2017-07-08] MEDS ORDERED: ACETAMINOPHEN 325 MG TABLET. PO PRN (14:15)
--- NOTE | 2017-07-08 14:47 | RAD ---
Indication: Leg pain and nonpalpable pulses. Grayscale, color-flow and duplex Doppler evaluation of bilateral lower extremity arterial systems was performed. There are triphasic waveforms in the right lower extremity from the right common femoral artery to the popliteal artery with biphasic waveforms below the knee. Triphasic waveforms on the left are noted in the common femoral and superficial femoral arteries with primarily biphasic waveforms from the popliteal distally. No significant velocity elevation is identified. There is no high-grade stenosis. No occlusion is detected. Impression: No evidence of high-grade stenosis or occlusion.
[2017-07-08] MEDS ORDERED: ASPIRIN 325 MG TABLET PO ONE (15:15)
[2017-07-08] MEDS ORDERED: MORPHINE SULFATE 4 MG/ML DISP.SYRIN. IV ONE (15:15)
[2017-07-08 16:00] VITALS: BP 105/55
[2017-07-08 19:35] VITALS: BP 113/48
[2017-07-08] MEDS ORDERED: IBUPROFEN 800 MG TABLET. PO PRN (20:15)
[2017-07-08] MEDS ORDERED: ONDANSETRON PF 4 MG/2 ML VIAL. IV PRN (20:15)
[2017-07-08] MEDS ORDERED: traMADol 50 MG TABLET PO PRN (20:15)
[2017-07-08] MEDS: IV RINGERS,LACTATED 1000ML 1,000 ML IV SCH (20:46)
[2017-07-08 23:10] VITALS: BP 115/58
[2017-07-09 03:00] VITALS: BP 109/37
[2017-07-09 04:18] LABS: BASO % 0 % (0-3); EOS % 1 % (0-3); HEMATOCRIT 25.4 % (36.0-47.0); HEMOGLOBIN 8.6 g/dL (12.0-15.5); LYMPH # 2.8 x10^3/uL (1.0-4.8); LYMPH % 22 % (24-48); MEAN CORPUSCULAR HEMOGLOBIN 30 pg (25-35); MEAN CORPUSCULAR HGB CONC 34 g/dL (31-37); MEAN CORPUSCULAR VOLUME 90 fL (79-100); MONO % 6 % (0-9); NEUT % 71 % (31-73); PLATELET COUNT 246 x10^3/uL (140-400); RED BLOOD COUNT 2.83 x10^6/uL (3.50-5.40); RED CELL DISTRIBUTION WIDTH 14.5 % (11.5-14.5); WHITE BLOOD COUNT 12.6 x10^3/uL (4.0-11.0)
[2017-07-09 04:53] LABS: ALBUMIN 2.7 g/dL (3.4-5.0); ALBUMIN/GLOBULIN RATIO 0.9 (1.0-1.7); CALCIUM 8.4 mg/dL (8.5-10.1); CREATININE 0.7 mg/dL (0.6-1.0); GFR 91.3; POTASSIUM 4.2 mmol/L (3.5-5.1); TOTAL BILIRUBIN 0.3 mg/dL (0.2-1.0); TOTAL PROTEIN 5.8 g/dL (6.4-8.2)
[2017-07-09] MEDS: IV RINGERS,LACTATED 1000ML 1,000 ML IV SCH (06:36)
[2017-07-09 07:00] VITALS: BP 106/51
--- NOTE | 2017-07-09 08:42 | PDOC1 ---
History and Physical Date of Admission Date of Admission DATE: 07/09/17 TIME: 08:37 Identification/Chief Complaint Chief Complaint syncope x 3 at home Problems: Source Source: Chart review, Patient History of Present Illness History of Present Illness 42 y/o 1 wk s/p TVH & BSO presented by ambulance to ED with c/o syncope x 3 that started yesterday morning. She felt great initially after the surgery but had syncope yesterday after drinking coffee in am. No fevers, chills, N/V, CP, SOB or headache or vaginal bleeding. Past Medical History Cardiovascular: No pertinent hx Pulmonary: No pertinent hx GI: No pertinent hx Heme/Onc: No pertinent hx Hepatobiliary: No pertinent hx Psych: No pertinent hx Past Surgical History Past Surgical History: Other (TVH & BSO) Current Problem List Problem List Problems Medical Problems: (1) Syncope Status: Acute Problems: Current Medications Current Medications Current Medications Sodium Chloride 1,000 ml @ 1,000 mls/hr 1X ONCE IV Last administered on 07/08 12:18; Start 07/08/17 at 12:15; Stop 07/08/17 at 13:14; Status DC Iohexol (Omnipaque 300 Mg/ml) 75 ml 1X ONCE IV Last administered on 13:15; Start 07/08/17 at 12:45; Stop 07/08/17 at 12:46; Status DC Info (Do NOT chart on this entry -- for MONITORING) 1 each PRN DAILY PRN MC SEE COMMENTS; Start 07/08/17 at 12:45; Stop 07/10/17 at 12:44 Ceftriaxone Sodium 50 ml @ 100 mls/hr 1X ONCE IV Last administered on 13:42; Start 07/08/17 at 13:15; Stop 07/08/17 at 13:44; Status DC Acetaminophen (Tylenol) 650 mg PRN Q4HRS PRN PO FEVER; Start 07/08/17 at 14:15 ; Stop 07/09/17 at 14:14 Sodium Chloride 1,000 ml @ 100 mls/hr 1X ONCE IV Last administered on 14:15; Start 07/08/17 at 14:15; Stop 07/09/17 at 00:14; Status DC Morphine Sulfate 4 mg 1X ONCE IV Last administered on 07/08/17 15:14; Start 07/08/17 at 15:15; Stop 07/08/17 at 15:16; Status DC Aspirin (Machelle Aspirin) 325 mg 1X ONCE PO Last administered on 07/08/17 15: 14; Start 07/08/17 at 15:15; Stop 07/08/17 at 15:16; Status DC Tramadol HCl (Ultram) 50 mg PRN Q6HRS PRN PO PAIN Last administered on 23:24; Start 07/08/17 at 20:15 Ibuprofen (Motrin) 800 mg PRN Q6HRS PRN PO INFLAMMATION Last administered on 20:46; Start 07/08/17 at 20:15 Ondansetron HCl (Zofran) 4 mg PRN Q6HRS PRN IV NAUSEA/VOMITING; Start at 20:15 Ringer's Solution 1,000 ml @ 150 mls/hr Q6H40M IV Last administered on 06:36; Start 07/08/17 at 20:30 Ceftriaxone Sodium 1 gm/ Dextrose 50 ml @ 100 mls/hr Q24H IV ; Start 07/08/17 at 20:30; Status UNV Ceftriaxone Sodium (Rocephin) 1 gm Q24H IVP ; Start 07/09/17 at 14:00 Active Scripts Active Percocet 5-325 Mg Tablet (Oxycodone/Acetaminophen) 1 Each Tablet 1 Tab PO PRN Q6HRS PRN Ibuprofen 800 Mg Tablet 800 Mg PO PRN Q6HRS PRN Colace (Docusate Sodium) 100 Mg Capsule 100 Mg PO BID Reported Percocet 5-325 Mg Tablet (Oxycodone/Acetaminophen) 1 Each Tablet 1-2 Tab PO Q4HRS Excedrin Migraine Caplet (Aspirin/Acetaminophen/Caffeine) 1 Each Tablet 1 Each PO BID PRN Allergies Allergies: Coded Allergies: No Known Drug Allergies (Unverified , 06/27/17) ROS General: YES: Appetite, No: Chills, Night Sweats, Fatigue, Malaise, Other PSYCHOLOGICAL ROS: YES: Anxiety, No: Behavioral Disorder, Concentration difficultie, Decreased libido, Depression, Disorientation, Hallucinations, Hostility, Irritablity, Memory difficulties, Mood Swings, Obsessive thoughts, Physical abuse, Sexual abuse, Sleep disturbances, Suicidal ideation, Other Eyes: No Blurry vision, No Decreased vision, No Double vision, No Dry eyes, No Excessive tearing, No Eye Pain, No Itchy Eyes, No Loss of vision, No Photophobia , No Scotomata, No Uses contacts, No Uses glasses, No Other HEENT: No: Heacaches, Visual Changes, Hearing change, Nasal congestion, Nasal discharge, Oral lesions, Sinus pain, Sore Throat, Epistaxis, Sneezing, Snoring, Tinnitus, Vertigo, Vocal changes, Other ALLERGY AND IMMUNOLOGY: No: Hives, Insect Bite Sensitivity, Itchy/Watery Eyes, Nasal Congestion, Post Nasal Drip, Seasonal Allergies, Other Hematological and Lymphatic: No: Bleeding Problems, Blood Clots, Blood Transfusions, Brusing, Night Sweats, Pallor, Swollen Lymph Nodes, Other ENDOCRINE: No: Breast Changes, Galactorrhea, Hair Pattern Changes, Hot Flashes , Malaise/lethargy, Mood Swings, Palpitations, Polydipsia/polyuria, Skin Changes , Temperature Intolerance, Unexpected Weight Changes, Other Breast: No New/Changing Breast Lumps, No Nipple changes, No Nipple discharge, No Other Respiratory: No: Cough, Hemoptysis, Orthopnea, Pleuritic Pain, Shortness of breath, SOB with excertion, Sputum Changes, Stridor, Tachypnea, Wheezing, Other Cardiovascular: No Chest Pain, No Palpitations, No Orthopnea, No Paroxysmal Noc. Dyspnea, No Edema, No Lt Headedness, No Other Gastrointestinal: No Nausea, No Vomiting, No Abdominal Pain, No Diarrhea, No Constipation, No Melena, No Hematochezia, No Other Genitourinary: No Dysuria, No Frequency, No Incontinence, No Hematuria, No Retention, No Discharge, No Urgency, No Pain, No Flank Pain, No Other, No , No , No , No , No , No , No Musculoskeletal: No Gait Disturbance, No Joint Pain, No Joint Stiffness, No Joint Swelling, No Muscle Pain, No Muscular Weakness, No Pain In:, No Swelling In:, No Other Physical Exam General: Alert, Oriented X3, Cooperative, No acute distress HEENT: Atraumatic Lungs: Clear to auscultation Heart: S1S2 Breasts: Normal Abdomen: Normal bowel sounds, Soft, No tenderness, No masses Neuro: Normal gait Psych/Mental Status: Mental status NL Vitals Vitals Vital Signs Date Time Temp Pulse Resp B/P (MAP) Pulse Ox O2 Delivery O2 Flow Rate FiO2 07/09/17 08:00 Room Air 2.0 07/09/17 07:00 98.7 74 18 106/51 (69) 99 98.7 Labs Labs Laboratory Tests Test 07/08/17 11:11 07/08/17 12:40 07/09/17 04:00 White Blood Count 9.6 x10^3/uL (4.0-11.0) 12.6 x10^3/uL (4.0-11.0) Red Blood Count 3.62 x10^6/uL (3.50-5.40) 2.83 x10^6/uL (3.50-5.40) Hemoglobin 11.3 g/dL (12.0-15.5) 8.6 g/dL (12.0-15.5) Hematocrit 32.3 % (36.0-47.0) 25.4 % (36.0-47.0) Mean Corpuscular Volume 89 fL (79-100) 90 fL (79-100) Mean Corpuscular Hemoglobin 31 pg (25-35) 30 pg (25-35) Mean Corpuscular Hemoglobin Concent 35 g/dL (31-37) 34 g/dL (31-37) Red Cell Distribution Width 14.1 % (11.5-14.5) 14.5 % (11.5-14.5) Platelet Count 322 x10^3/uL (140-400) 246 x10^3/uL (140-400) Neutrophils (%) (Auto) 56 % (31-73) 71 % (31-73) Lymphocytes (%) (Auto) 37 % (24-48) 22 % (24-48) Monocytes (%) (Auto) 6 % (0-9) 6 % (0-9) Eosinophils (%) (Auto) 1 % (0-3) 1 % (0-3) Basophils (%) (Auto) 0 % (0-3) 0 % (0-3) Neutrophils # (Auto) 5.3 x10^3uL (1.8-7.7) 9.0 x10^3uL (1.8-7.7) Lymphocytes # (Auto) 3.5 x10^3/uL (1.0-4.8) 2.8 x10^3/uL (1.0-4.8) Monocytes # (Auto) 0.6 x10^3/uL (0.0-1.1) 0.7 x10^3/uL (0.0-1.1) Eosinophils # (Auto) 0.1 x10^3/uL (0.0-0.7) 0.1 x10^3/uL (0.0-0.7) Basophils # (Auto) 0.0 x10^3/uL (0.0-0.2) 0.0 x10^3/uL (0.0-0.2) D-Dimer (Lashanda) 0.94 ug/mlFEU (0.00-0.50) Sodium Level 139 mmol/L (136-145) 140 mmol/L (136-145) Potassium Level 3.7 mmol/L (3.5-5.1) 4.2 mmol/L (3.5-5.1) Chloride Level 105 mmol/L (98-107) 107 mmol/L (98-107) Carbon Dioxide Level 20 mmol/L (21-32) 26 mmol/L (21-32) Anion Gap 14 (6-14) 7 (6-14) Blood Urea Nitrogen 12 mg/dL (7-20) 12 mg/dL (7-20) Creatinine 1.1 mg/dL (0.6-1.0) 0.7 mg/dL (0.6-1.0) Estimated GFR (Cockcroft-Gault) 54.2 91.3 BUN/Creatinine Ratio 11 (6-20) 17 (6-20) Glucose Level 186 mg/dL (70-99) 117 mg/dL (70-99) Calcium Level 9.0 mg/dL (8.5-10.1) 8.4 mg/dL (8.5-10.1) Total Bilirubin 0.3 mg/dL (0.2-1.0) 0.3 mg/dL (0.2-1.0) Aspartate Amino Transf (AST/SGOT) 15 U/L (15-37) 10 U/L (15-37) Alanine Aminotransferase (ALT/SGPT) 22 U/L (14-59) 17 U/L (14-59) Alkaline Phosphatase 81 U/L (46-116) 63 U/L (46-116) Troponin I Quantitative < 0.017 ng/mL (0.000-0.055) Total Protein 6.6 g/dL (6.4-8.2) 5.8 g/dL (6.4-8.2) Albumin 3.0 g/dL (3.4-5.0) 2.7 g/dL (3.4-5.0) Albumin/Globulin Ratio 0.8 (1.0-1.7) 0.9 (1.0-1.7) Urine Color Yellow Urine Clarity Cloudy Urine pH 6.5 Urine Specific [place] 1.025 Urine Protein 100 mg/dL (NEG-TRACE) Urine Glucose (UA) 100 mg/dL (NEG) Urine Ketones (Stick) Trace mg/dL (NEG) Urine Blood Small (NEG) Urine Nitrite Negative (NEG) Urine Bilirubin Negative (NEG) Urine Urobilinogen Dipstick 0.2 mg/dL (0.2 mg/dL) Urine Leukocyte Esterase Small (NEG) Urine RBC 6-10 /HPF (0-2) Urine WBC 20-40 /HPF (0-4) Urine Squamous Epithelial Cells Many /LPF Urine Bacteria Moderate /HPF (0-FEW) Urine Mucus Marked /LPF Laboratory Tests Test 07/08/17 11:11 07/08/17 12:40 07/09/17 04:00 White Blood Count 9.6 x10^3/uL (4.0-11.0) 12.6 x10^3/uL (4.0-11.0) Red Blood Count 3.62 x10^6/uL (3.50-5.40) 2.83 x10^6/uL (3.50-5.40) Hemoglobin 11.3 g/dL (12.0-15.5) 8.6 g/dL (12.0-15.5) Hematocrit 32.3 % (36.0-47.0) 25.4 % (36.0-47.0) Mean Corpuscular Volume 89 fL (79-100) 90 fL (79-100) Mean Corpuscular Hemoglobin 31 pg (25-35) 30 pg (25-35) Mean Corpuscular Hemoglobin Concent 35 g/dL (31-37) 34 g/dL (31-37) Red Cell Distribution Width 14.1 % (11.5-14.5) 14.5 % (11.5-14.5) Platelet Count 322 x10^3/uL (140-400) 246 x10^3/uL (140-400) Neutrophils (%) (Auto) 56 % (31-73) 71 % (31-73) Lymphocytes (%) (Auto) 37 % (24-48) 22 % (24-48) Monocytes (%) (Auto) 6 % (0-9) 6 % (0-9) Eosinophils (%) (Auto) 1 % (0-3) 1 % (0-3) Basophils (%) (Auto) 0 % (0-3) 0 % (0-3) Neutrophils # (Auto) 5.3 x10^3uL (1.8-7.7) 9.0 x10^3uL (1.8-7.7) Lymphocytes # (Auto) 3.5 x10^3/uL (1.0-4.8) 2.8 x10^3/uL (1.0-4.8) Monocytes # (Auto) 0.6 x10^3/uL (0.0-1.1) 0.7 x10^3/uL (0.0-1.1) Eosinophils # (Auto) 0.1 x10^3/uL (0.0-0.7) 0.1 x10^3/uL (0.0-0.7) Basophils # (Auto) 0.0 x10^3/uL (0.0-0.2) 0.0 x10^3/uL (0.0-0.2) D-Dimer ([place]anda) 0.94 ug/mlFEU (0.00-0.50) Sodium Level 139 mmol/L (136-145) 140 mmol/L (136-145) Potassium Level 3.7 mmol/L (3.5-5.1) 4.2 mmol/L (3.5-5.1) Chloride Level 105 mmol/L (98-107) 107 mmol/L (98-107) Carbon Dioxide Level 20 mmol/L (21-32) 26 mmol/L (21-32) Anion Gap 14 (6-14) 7 (6-14) Blood Urea Nitrogen 12 mg/dL (7-20) 12 mg/dL (7-20) Creatinine 1.1 mg/dL (0.6-1.0) 0.7 mg/dL (0.6-1.0) Estimated GFR (Cockcroft-Gault) 54.2 91.3 BUN/Creatinine Ratio 11 (6-20) 17 (6-20) Glucose Level 186 mg/dL (70-99) 117 mg/dL (70-99) Calcium Level 9.0 mg/dL (8.5-10.1) 8.4 mg/dL (8.5-10.1) Total Bilirubin 0.3 mg/dL (0.2-1.0) 0.3 mg/dL (0.2-1.0) Aspartate Amino Transf (AST/SGOT) 15 U/L (15-37) 10 U/L (15-37) Alanine Aminotransferase (ALT/SGPT) 22 U/L (14-59) 17 U/L (14-59) Alkaline Phosphatase 81 U/L (46-116) 63 U/L (46-116) Troponin I Quantitative < 0.017 ng/mL (0.000-0.055) Total Protein 6.6 g/dL (6.4-8.2) 5.8 g/dL (6.4-8.2) Albumin 3.0 g/dL (3.4-5.0) 2.7 g/dL (3.4-5.0) Albumin/Globulin Ratio 0.8 (1.0-1.7) 0.9 (1.0-1.7) Urine Color Yellow Urine Clarity Cloudy Urine pH 6.5 Urine Specific [place] 1.025 Urine Protein 100 mg/dL (NEG-TRACE) Urine Glucose (UA) 100 mg/dL (NEG) Urine Ketones (Stick) Trace mg/dL (NEG) Urine Blood Small (NEG) Urine Nitrite Negative (NEG) Urine Bilirubin Negative (NEG) Urine Urobilinogen Dipstick 0.2 mg/dL (0.2 mg/dL) Urine Leukocyte Esterase Small (NEG) Urine RBC 6-10 /HPF (0-2) Urine WBC 20-40 /HPF (0-4) Urine Squamous Epithelial Cells Many /LPF Urine Bacteria Moderate /HPF (0-FEW) Urine Mucus Marked /LPF VTE Prophylaxis Ordered VTE Prophylaxis Devices: No VTE Pharmacological Prophylaxi: No Assessment/Plan Assessment/Plan A: Syncope at home. UTI P: Pt. observed overnight and provided IV fluids and IV abx for UTI. SHe feels much better this am. She is ambulating in room without difficulty. D/c home. F/u in 1 wk. ERNESTO CUEVAS Jr, MD Jul 09, 2017 08:42
--- NOTE | 2017-07-09 08:43 | DISCH ---
DISCHARGE INSTRUCTIONS Condition on Discharge Condition on Discharge: Stable Activity After Discharge Activity Instructions for Disc: Activity as tolerated Lifting Instructions after Dis: No heavy lifting Driving Instructions after Dis: Do not drive today Diet after Discharge Diet after Discharge: Regular Contacting the DRIrvin after DC Call your doctor for: Concerns you may have Follow-Up Follow up with: Dr. Dominguez in 1 week. ERNESTO DOMINGUEZ Jr, MD Jul 09, 2017 08:43
[2017-07-09] MEDS ORDERED: SULF1TAB24 PO (08:44)
[2017-07-09] MEDS ORDERED: cefTRIAXone IV Push 1 GM VIAL. IVP SCH (14:00)
== END 2017-07-09 10:55 | disposition home or self-care (01) ==
LOC: ER 11:05 → 3 NORTH 14:05 → 2 NORTH 16:05
PROVIDERS: ADMIT Obstetrics & Gynecology; ATTEND Obstetrics & Gynecology
DX: N39.0 Urinary tract infection, site not specified (principal); G43.909 Migraine, unspecified, not intractable, without status migrainosus; Z90.710 Acquired absence of both cervix and uterus
CPT/HCPCS: 36415; 71010; 71275; 74177; 80053; 81001; 84484; 85025; 85379; 87086; 93005; 93923; 96361; 96365; 96375; 99285; G0378; J0690; J2270; J7030; Q9967; G0379; J7120

== ENCOUNTER 2019-11-02 10:24 | Emergency (ER) | payer BC, OTHER ==
[~2019-11-02] VITALS: Ht 172.7 cm; Wt 105.0 kg
[~2019-11-02 10:24] MED LIST changes: -OXYC-323 PO; +OXYC1TAB15 PO; +SULF1TAB24 PO
[2019-11-02] MEDS ORDERED: IV NORMAL SALINE 1000ML BAG 1,000 ML IV SCH (10:42)
[2019-11-02] MEDS ORDERED: ASPIRIN CHEWABLE 81 MG TABLET. PO ONE (10:45)
--- NOTE | 2019-11-02 10:45 | PHYS DOC ---
Past Medical History Past Medical History: No Pertinent History, Migraines Past Surgical History: Hysterectomy, Other Additional Past Surgical Histo: VAGINAL SURG R/T CANCER CELLS Smoking Status: Former Smoker Alcohol Use: None Drug Use: None Adult General Chief Complaint Chief Complaint: CHEST PAIN HPI HPI Patient is a 44 year old female who presents with complaint of midsternal chest discomfort that started about a week ago and has been constant for last 2 days. Patient describes pain as sharp and stabbing in nature. She states the pain is worsened with movement and deep breathing. She denies any nausea, vomiting or diaphoresis. Patient does indicate that she has been lightheaded and when she stands up she feels like she is going to pass out.[] Review of Systems Review of Systems Constitutional: Denies fever or chills [] Respiratory: Denies cough or shortness of breath [] Cardiovascular: No additional information not addressed in HPI [] GI: Denies abdominal pain, nausea, vomiting, bloody stools or diarrhea [] Integument: Denies rash or skin lesions [] Neurologic: Denies headache, focal weakness or sensory changes [] All other systems were reviewed and found to be within normal limits, except as documented in this note. Current Medications Current Medications Current Medications Medications (Trade) Dose Ordered Sig/Fausto Start Time Stop Time Status Last Admin Dose Admin Aspirin (Children'S Aspirin) 324 mg 1X ONCE 11/02/19 10:45 11/02/19 10:46 DC 11/02/19 11:07 324 MG Sodium Chloride 1,000 ml @ 1,000 mls/hr Q1H 11/02/19 10:42 11/02/19 11:41 DC 11/02/19 11:07 1,000 MLS/HR Allergies Allergies Allergies Coded Allergies Type Severity Reaction Last Updated Verified oxycodone Allergy Intermediate 11/02/19 Yes Physical Exam Physical Exam Constitutional: Well developed, well nourished, no acute distress, non-toxic appearance. [] HENT: Normocephalic, atraumatic, bilateral external ears normal, oropharynx moist, no oral exudates, nose normal. [] Eyes: PERRLA, EOMI, conjunctiva normal, no discharge. [] Neck: Normal range of motion, no tenderness, supple. [] Cardiovascular:Heart rate regular rhythm, no murmur [] Lungs & Thorax: Bilateral breath sounds clear to auscultation [] Abdomen: Bowel sounds normal, soft, no tenderness. [] Skin: Warm, dry, no erythema, no rash. [] Extremities: No tenderness, no cyanosis, no clubbing, ROM intact, no edema. [] Neurologic: Alert and oriented X 3, no focal deficits noted. [] Current Patient Data Vital Signs Vital Signs Date Time Temp Pulse Resp B/P (MAP) Pulse Ox O2 Delivery O2 Flow Rate FiO2 11/02/19 10:29 98.1 80 21 143/85 (104) 98 Room Air 98.1 Lab Values Laboratory Tests Test 11/02/19 10:50 11/02/19 12:45 D-Dimer (Lashanda) < 0.27 ug/mlFEU Sodium Level 141 mmol/L (136-145) Potassium Level 4.3 mmol/L (3.5-5.1) Chloride Level 106 mmol/L (98-107) Carbon Dioxide Level 28 mmol/L (21-32) Anion Gap 7 (6-14) Blood Urea Nitrogen 11 mg/dL (7-20) Creatinine 0.8 mg/dL (0.6-1.0) Estimated GFR (Cockcroft-Gault) 77.6 BUN/Creatinine Ratio 14 (6-20) Glucose Level 108 mg/dL (70-99) H Calcium Level 9.1 mg/dL (8.5-10.1) Magnesium Level 1.9 mg/dL (1.8-2.4) Total Bilirubin 0.4 mg/dL (0.2-1.0) Aspartate Amino Transferase (AST) 28 U/L (15-37) Alanine Aminotransferase (ALT) 54 U/L (14-59) Alkaline Phosphatase 113 U/L (46-116) Troponin I Quantitative < 0.017 ng/mL (0.000-0.055) Total Protein 7.2 g/dL (6.4-8.2) Albumin 3.7 g/dL (3.4-5.0) Albumin/Globulin Ratio 1.1 (1.0-1.7) White Blood Count 8.3 x10^3/uL (4.0-11.0) Red Blood Count 4.41 x10^6/uL (3.50-5.40) Hemoglobin 13.1 g/dL (12.0-15.5) Hematocrit 38.8 % (36.0-47.0) Mean Corpuscular Volume 88 fL (79-100) Mean Corpuscular Hemoglobin 30 pg (25-35) Mean Corpuscular Hemoglobin Concent 34 g/dL (31-37) Red Cell Distribution Width 14.2 % (11.5-14.5) Platelet Count 256 x10^3/uL (140-400) Neutrophils (%) (Auto) 56 % (31-73) Lymphocytes (%) (Auto) 35 % (24-48) Monocytes (%) (Auto) 8 % (0-9) Eosinophils (%) (Auto) 1 % (0-3) Basophils (%) (Auto) 0 % (0-3) Neutrophils # (Auto) 4.7 x10^3/uL (1.8-7.7) Lymphocytes # (Auto) 2.9 x10^3/uL (1.0-4.8) Monocytes # (Auto) 0.6 x10^3/uL (0.0-1.1) Eosinophils # (Auto) 0.1 x10^3/uL (0.0-0.7) Basophils # (Auto) 0.0 x10^3/uL (0.0-0.2) Laboratory Tests 11/02/19 12:45 Laboratory Tests 11/02/19 10:50 EKG EKG EKG demonstrates normal sinus rhythm with rate of 66.[] Radiology/Procedures Radiology/Procedures [] Impressions: PROCEDURE: PORTABLE CHEST 1V EXAM: PORTABLE CHEST 1V INDICATION: Chest pain. TECHNIQUE: Single view COMPARISON: 07/08/2017 FINDINGS: The heart size is normal. The great vessels appear unremarkable. There is no hilar or mediastinal mass. The lungs are clear. There is no pleural effusion or pneumothorax. There are no significant osseous abnormalities. IMPRESSION: No active cardiopulmonary disease. Electronically signed by: Paris Moffett MD (11/02/2019 11:34 AM) [id number] Course & Med Decision Making Course & Med Decision Making Pertinent Labs and Imaging studies reviewed. (See chart for details) [] Dragon Disclaimer Dragon Disclaimer This electronic medical record was generated, in whole or in part, using a voice recognition dictation system. Departure Departure Impression: Primary Impression: Chest wall pain Additional Impression: Lightheadedness Disposition: 01 HOME, SELF-CARE Condition: STABLE Referrals: NO PCP (PCP) Patient Instructions: Chest Wall Pain, Dizziness Problem Qualifiers NADIYA ALICEA Jr. DO Nov 02, 2019 10:45
[2019-11-02 11:13] LABS: CALCIUM 9.1 mg/dL (8.5-10.1); CREATININE 0.8 mg/dL (0.6-1.0); GFR 77.6; POTASSIUM 4.3 mmol/L (3.5-5.1)
[2019-11-02 11:19] LABS: ALBUMIN 3.7 g/dL (3.4-5.0); ALBUMIN/GLOBULIN RATIO 1.1 (1.0-1.7); MAGNESIUM 1.9 mg/dL (1.8-2.4); TOTAL BILIRUBIN 0.4 mg/dL (0.2-1.0); TOTAL PROTEIN 7.2 g/dL (6.4-8.2)
--- NOTE | 2019-11-02 11:37 | RAD ---
EXAM: PORTABLE CHEST 1V INDICATION: Chest pain. TECHNIQUE: Single view COMPARISON: 07/08/2017 FINDINGS: The heart size is normal. The great vessels appear unremarkable. There is no hilar or mediastinal mass. The lungs are clear. There is no pleural effusion or pneumothorax. There are no significant osseous abnormalities. IMPRESSION: No active cardiopulmonary disease. Electronically signed by: Paris Moffett MD (11/02/2019 11:34 AM) [id number]
[2019-11-02 13:15] LABS: BASO % 0 % (0-3); EOS # 0.1 x10^3/uL (0.0-0.7); EOS % 1 % (0-3); HEMATOCRIT 38.8 % (36.0-47.0); HEMOGLOBIN 13.1 g/dL (12.0-15.5); LYMPH # 2.9 x10^3/uL (1.0-4.8); LYMPH % 35 % (24-48); MEAN CORPUSCULAR HEMOGLOBIN 30 pg (25-35); MEAN CORPUSCULAR HGB CONC 34 g/dL (31-37); MEAN CORPUSCULAR VOLUME 88 fL (79-100); MONO # 0.6 x10^3/uL (0.0-1.1); MONO % 8 % (0-9); NEUT # 4.7 x10^3/uL (1.8-7.7); NEUT % 56 % (31-73); PLATELET COUNT 256 x10^3/uL (140-400); RED BLOOD COUNT 4.41 x10^6/uL (3.50-5.40); RED CELL DISTRIBUTION WIDTH 14.2 % (11.5-14.5); WHITE BLOOD COUNT 8.3 x10^3/uL (4.0-11.0)
--- NOTE | 2019-11-02 14:10 | EKG ---
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
[2019-11-02 14:38] VITALS: BP 122/69
== END 2019-11-02 14:45 | disposition home or self-care (01) ==
LOC: ER 10:24
DX: R07.2 Precordial pain (principal); R42 Dizziness and giddiness; G43.909 Migraine, unspecified, not intractable, without status migrainosus; Z87.891 Personal history of nicotine dependence; Z88.5 Allergy status to narcotic agent
CPT/HCPCS: 36415; 71045; 80053; 83735; 84484; 85025; 85379; 93005; 96360; 99285; J7030

== ENCOUNTER → 2020-10-17 | Outpatient (CLI) | payer OTHER ==
--- NOTE | 2020-10-18 12:58 | RAD ---
DATE: 10/17/2020 2:21 PM EXAM: DIGITAL SCREEN BILAT W/CAD HISTORY: Screening COMPARISON: 11/20/2017 Bilateral full field craniocaudal and mediolateral oblique images were obtained using digital technique. This study was interpreted with the benefit of Computerized Aided Detection (CAD). FINDINGS: Breast Density: SCATTERED The breast parenchyma shows scattered fibroglandular densities. Breast parenchyma level B No suspicious masses, microcalcifications or architectural distortion is present to suggest malignancy in either breast. The visualized axillae are unremarkable. IMPRESSION: No mammographic evidence of malignancy. BI-RADS CATEGORY: 1 NEGATIVE RECOMMENDED FOLLOW-UP: 12M 12 MONTH FOLLOW-UP Annual screening mammography is recommended, unless clinically indicated sooner based on symptoms or change in physical exam. PQRS compliance statement: Patient information was entered into a reminder system with a target due date for the next mammogram. Mammography is a sensitive method for finding small breast cancers, but it does not detect them all and is not a substitute for careful clinical examination. A negative mammogram does not negate a clinically suspicious finding and should not result in delay in biopsying a clinically suspicious abnormality. "Our facility is accredited by the [employer] Mammography Program."
== END ==
LOC: MAMMO 16:02
PROVIDERS: ATTEND Family Medicine
DX: Z12.31 Encounter for screening mammogram for malignant neoplasm of breast (principal)
CPT/HCPCS: 77067